=== PATIENT | female | born 1950 | race Two or more races ===

== ENCOUNTER 2020-03-23 08:47 | Outpatient (CLI) | payer MEDICARE | END 2020-03-23 23:59 | disposition home or self-care (01) | LOC: RAD 08:47 | PROVIDERS: ATTEND Internal Medicine | DX: Z02.9 Encounter for administrative examinations, unspecified (principal) ==

== ENCOUNTER → 2020-03-25 | Outpatient (CLI) | payer MEDICARE | END | disposition home or self-care (01) | LOC: CFH 09:19 | PROVIDERS: ATTEND Family Medicine | DX: M85.88 Other specified disorders of bone density and structure, other site (principal); N95.8 Other specified menopausal and perimenopausal disorders | CPT/HCPCS: 77080 ==